=== PATIENT | female | born 1970 | race Caucasian/White ===

== ENCOUNTER → 2018-05-22 | Outpatient (CLI) | payer BC ==
[2018-05-22 17:01] LABS: EOS # 0.2 (0.04-0.40); EOS % 2.9 % (1.0-5.0); HEMATOCRIT 39.7 % (37.0-47.0); HEMOGLOBIN 12.7 g/dL (12.5-16.0); LYMPH# 1.3 (1.50-4.00); MEAN CELL VOLUME 88 fl (78-100); MEAN CORPUSCULAR HEMOGLOBIN 28 pg (27-31); MEAN CORPUSCULAR HGB CONC 32 g/dL (33-37); MEAN PLATELET VOLUME 11.4 fl (7.4-10.4); MONO # 0.5 (0.20-0.80); NEU # 4.6 (1.40-6.50); PLATELET COUNT 258 K/mm3 (130-400); RED BLOOD COUNT 4.49 M/mm3 (4.10-5.30); RED CELL DISTRIBUTION WIDTH 14.7 % (11.5-14.5); WHITE BLOOD COUNT 6.6 K/mm3 (4.8-10.8)
[2018-05-22 17:15] LABS: ALBUMIN 4.2 g/dL (3.5-5.0); BUN/CREATININE RATIO 29.6 (6.0-26.0); CALCIUM 8.9 mg/dL (8.4-10.2); POTASSIUM 4.5 mmol/L (3.6-5.0); TOTAL BILIRUBIN 0.2 mg/dL (0.2-1.3); TOTAL PROTEIN 8.1 g/dL (6.3-8.2)
== END ==
LOC: LAB 16:47
PROVIDERS: Family Medicine
DX: Z00.00 Encounter for general adult medical examination without abnormal findings (principal); R00.2 Palpitations; Z80.8 Family history of malignant neoplasm of other organs or systems

== ENCOUNTER → 2018-06-18 | Outpatient (CLI) | payer BC | LOC: MAMMO 08:30 | DX: N64.59 Other signs and symptoms in breast (principal) ==

== ENCOUNTER → 2019-10-13 | Outpatient (CLI) | payer BC ==
[2019-10-13 17:34] LABS: EOS # 0.2 (0.04-0.40); EOS % 3.3 % (1.0-5.0); HEMATOCRIT 40.1 % (37.0-47.0); HEMOGLOBIN 12.4 g/dL (12.5-16.0); LYMPH# 1.2 (1.50-4.00); MEAN CELL VOLUME 90 fl (78-100); MEAN CORPUSCULAR HEMOGLOBIN 28 pg (27-31); MEAN CORPUSCULAR HGB CONC 31 g/dL (33-37); MEAN PLATELET VOLUME 11.8 fl (7.4-10.4); MONO # 0.5 (0.20-0.80); NEU # 3.3 (1.40-6.50); PLATELET COUNT 244 K/mm3 (130-400); RED BLOOD COUNT 4.45 M/mm3 (4.10-5.30); RED CELL DISTRIBUTION WIDTH 15.1 % (11.5-14.5); WHITE BLOOD COUNT 5.2 K/mm3 (4.8-10.8)
[2019-10-13 17:59] LABS: ALBUMIN 4.1 g/dL (3.5-5.0); POTASSIUM 3.8 mmol/L (3.5-5.1)
[2019-10-13 18:00] LABS: CALCIUM 9.3 mg/dL (8.3-10.5)
[2019-10-13 18:01] LABS: TOTAL PROTEIN 6.9 g/dL (6.4-8.3)
[2019-10-13 18:03] LABS: TOTAL BILIRUBIN 0.2 mg/dL (0.2-1.2)
[2019-10-13 18:39] LABS: ERYTHROCYTE SEDIMENTATION RATE 11 mm/hr (0-20)
== END ==
LOC: RAD 17:03
PROVIDERS: Family Medicine
DX: M19.071 Primary osteoarthritis, right ankle and foot (principal); M25.775 Osteophyte, left foot; M25.774 Osteophyte, right foot

== ENCOUNTER → 2020-05-05 | Outpatient (CLI) | payer BC ==
[2020-05-05 16:14] LABS: EOS # 0.1 (0.04-0.40); EOS % 0.9 % (1.0-5.0); HEMATOCRIT 37.1 % (37.0-47.0); HEMOGLOBIN 11.4 g/dL (12.5-16.0); LYMPH# 0.8 (1.50-4.00); MEAN CELL VOLUME 95 fl (78-100); MEAN CORPUSCULAR HEMOGLOBIN 29 pg (27-31); MEAN CORPUSCULAR HGB CONC 31 g/dL (33-37); MEAN PLATELET VOLUME 10.7 fl (7.4-10.4); MONO # 0.5 (0.20-0.80); NEU # 5.1 (1.40-6.50); PLATELET COUNT 298 K/mm3 (130-400); RED CELL DISTRIBUTION WIDTH 15.9 % (11.5-14.5); WHITE BLOOD COUNT 6.5 K/mm3 (4.8-10.8)
[2020-05-09 03:27] LABS: FOLLICLE STIMULATING HORMONE 12.9 mIU/mL (()); LUTENIZING HORMONE 9.2 mIU/mL (())
[2020-05-09 03:28] LABS: PROGESTERONE <0.5 ng/mL (())
[2020-05-11 08:49] LABS: ESTRONE (E1) LEVEL 143 pg/mL (())
== END ==
LOC: LAB 16:03
PROVIDERS: Family Medicine
DX: N93.9 Abnormal uterine and vaginal bleeding, unspecified (principal); R10.9 Unspecified abdominal pain

== ENCOUNTER → 2020-05-10 | Outpatient (CLI) | payer BC | LOC: RAD 11:18 | DX: N85.00 Endometrial hyperplasia, unspecified (principal); R10.9 Unspecified abdominal pain ==

== ENCOUNTER → 2020-09-12 | Outpatient (CLI) | payer BC | LOC: LAB 16:30 | DX: R10.9 Unspecified abdominal pain (principal); K59.09 Other constipation; H60.90 Unspecified otitis externa, unspecified ear ==

== ENCOUNTER → 2021-01-22 | Outpatient (CLI) | payer BC ==
[2021-01-22 15:49] LABS: POTASSIUM 4.4 mmol/L (3.5-5.1)
[2021-01-22 15:50] LABS: ALBUMIN 3.8 g/dL (3.5-5.0)
[2021-01-22 15:52] LABS: TOTAL PROTEIN 6.9 g/dL (6.4-8.3)
[2021-01-22 15:54] LABS: TOTAL BILIRUBIN 0.2 mg/dL (0.2-1.2)
[2021-01-22 18:04] LABS: EOS # 0.1 (0.04-0.40); EOS % 1.4 % (1.0-5.0); HEMATOCRIT 40.4 % (37.0-47.0); HEMOGLOBIN 12.2 g/dL (12.5-16.0); LYMPH# 1.1 (1.50-4.00); MEAN CELL VOLUME 97 fl (78-100); MEAN CORPUSCULAR HEMOGLOBIN 29 pg (27-31); MEAN CORPUSCULAR HGB CONC 30 g/dL (33-37); MONO # 0.4 (0.20-0.80); NEU # 4.2 (1.40-6.50); PLATELET COUNT 268 K/mm3 (130-400); RED BLOOD COUNT 4.18 M/mm3 (4.10-5.30); RED CELL DISTRIBUTION WIDTH 15.1 % (11.5-14.5); WHITE BLOOD COUNT 5.7 K/mm3 (4.8-10.8)
[2021-01-22 18:19] LABS: MEAN PLATELET VOLUME 12.4 fl (7.4-10.4)
== END ==
LOC: LAB 15:28
PROVIDERS: Family Medicine
DX: Z00.00 Encounter for general adult medical examination without abnormal findings (principal); M25.521 Pain in right elbow; E78.5 Hyperlipidemia, unspecified

== ENCOUNTER → 2021-10-15 | Outpatient (CLI) | payer BC | LOC: RAD 14:38 | DX: M19.011 Primary osteoarthritis, right shoulder (principal) ==

== ENCOUNTER → 2021-11-30 | Outpatient (CLI) | payer BC ==
[2021-11-30 15:52] LABS: BASO # 0.12 K/mm3 (0.02-0.10); EOS # 0.28 K/mm3 (0.04-0.40); EOS % 4.6 % (1.0-5.0); HEMATOCRIT 22.9 % (37.0-47.0); LYMPH# 2.37 K/mm3 (1.50-4.00); MEAN CELL VOLUME 102 fl (78-100); MEAN CORPUSCULAR HEMOGLOBIN 31 pg (27-31); MEAN CORPUSCULAR HGB CONC 31 g/dL (33-37); MEAN PLATELET VOLUME 10.3 fl (7.4-10.4); MONO # 0.64 K/mm3 (0.20-0.80); NEU # 2.55 K/mm3 (1.40-6.50); PLATELET COUNT 158 K/mm3 (130-400); RED CELL DISTRIBUTION WIDTH 21.7 % (11.5-14.5); WHITE BLOOD COUNT 6.1 K/mm3 (4.8-10.8)
[2021-11-30 15:58] LABS: RED BLOOD COUNT 2.24 M/mm3 (4.10-5.30)
[2021-11-30 16:06] LABS: ALBUMIN 2.6 g/dL (3.5-5.0)
[2021-11-30 16:07] LABS: POTASSIUM 3.4 mmol/L (3.5-5.1)
[2021-11-30 16:08] LABS: CALCIUM 9.1 mg/dL (8.3-10.5)
[2021-11-30 16:09] LABS: TOTAL PROTEIN 8.3 g/dL (6.4-8.3)
== END ==
LOC: LAB 15:41
PROVIDERS: Family Medicine
DX: A41.9 Sepsis, unspecified organism (principal)

== ENCOUNTER → 2022-02-21 | Outpatient (CLI) | payer BC | LOC: RAD 11:15 | DX: B39.2 Pulmonary histoplasmosis capsulati, unspecified (principal); R91.8 Other nonspecific abnormal finding of lung field | CPT/HCPCS: Q9967 ==

== ENCOUNTER → 2023-08-25 | Outpatient (CLI) | payer BC | LOC: RAD 11:48 | DX: J84.10 Pulmonary fibrosis, unspecified (principal); B39.3 Disseminated histoplasmosis capsulati | CPT/HCPCS: Q9967 ==

== ENCOUNTER → 2024-04-13 | Outpatient (CLI) | payer BC | LOC: LAB 15:23 | DX: B39.3 Disseminated histoplasmosis capsulati (principal) ==